=== PATIENT | male | born 1990 | race Caucasian/White ===

== ENCOUNTER 2019-10-27 12:41 | Emergency (ER) | payer OTHER, SELFPAY ==
[2019-10-27 12:52] VITALS: BP 135/65; PULSE 79; RESP 15; TEMP 36.8; O2SAT 95; BMI 29.0
--- NOTE | 2019-10-27 13:09 | DI.RAD.S_ITS ---
PROCEDURE: XR CHEST 2V INDICATIONS: cough TECHNIQUE: 2 views of the chest were acquired. COMPARISON: None. FINDINGS: Surgical changes and devices: None. Lungs and pleura: Lungs are clear. No pleural effusions or pneumothorax. Mediastinum: Mediastinal contours are normal. Heart size is normal. Bones and chest wall: No suspicious bony abnormalities. Soft tissues appear unremarkable. IMPRESSION: No acute pulmonary process. Dictated by: Nelia Marcial M.D. on 10/27/2019 at 13:27 Approved by: Nelia Marcial M.D. on 10/27/2019 at 13:32
--- NOTE | 2019-10-27 13:11 | ED.URI ---
HPI - URI/Sore Throat <HANSEL Lomeli-BC - Last Filed: 10/27/19 14:21> General Chief Complaint: Upper Respiratory Symptoms Stated Complaint: shortness of breath and cough no fever yet Time Seen by Provider: 10/27/19 12:44 Source: patient Mode of arrival: Ambulatory Limitations: no limitations History of Present Illness HPI Narrative: The patient is a 29-year-old male current smoker with history of insomnia who presents with a chief complaint of sore throat congestion and cough. This started 3 days ago, started with pressure in his right sinuses, the moved his left the next day. He had 2 days of cough, but states that his cough is much improved today. He complains of sore throat and states he feels like his throat is swollen. He has been using DayQuil to feel better, which she states helps a little bit. He denies any fevers. Has some nausea related to medication usage. Denies any chest pain. States his cough is nonproductive. Denies any chills but states that his lower back hurts on occasion. Denies any ear pain. Has not taken anything today to feel better. Regarding CoVid 19 risk factors, the patient denies any international travel. He denies any fever. He denies any exposure to known positive CoVid patients. He has not particularly concerned about Covid19. Related Data Previous Rx's Medication Instructions Recorded amoxicillin 875 mg PO BID #20 tab 10/27/19 Allergies Allergy/AdvReac Type Severity Reaction Status Date / Time No Known Drug Allergies Allergy Verified 10/27/19 12:52 Review of Systems <EVA Lomeli - Last Filed: 10/27/19 14:21> Review of Systems Narrative: GENERAL: See HPI HEENT: See HPI RESPIRATORY: See HPI CARDIOVASCULAR: Denies chest pain, palpitations, orthopnea, edema, GASTROINTESTINAL: Denies nausea, vomiting, abdominal pain, diarrhea, constipation, melena. : Denies dysuria, frequency, incontinence, hematuria, urinary retention. MUSCULOSKELETAL: denies weakness, joint pain, or bony pain SKIN: Denies rash, skin lesions, or other NEUROLOGIC: Denies weakness, headache, numbness, change in speech, confusion, seizures, incoordination. PSYCHIATRIC: No concerning psychosocial issues. 12 point review of systems is negative except for those stated above Patient History <EVA Lomeli - Last Filed: 10/27/19 14:21> Medical History Excessive daytime sleepiness (Chronic) Insomnia, unspecified (Chronic) Obstructive sleep apnea of adult (Chronic) Social History marital status: details: Juanita Boland number of children: 2 household members: significant other and children lives independently: Yes caregiver/support person: No housing: house occupational status: employed current occupational exposures/hazards: Yes (in the [employer]) Smoking Status: Current every day smoker Smoking Status: Current every day smoker tobacco type: e-cigarettes alcohol intake frequency: holidays/special occasions only Substance Use Type: does not use Exam <EVA Lomeli - Last Filed: 10/27/19 14:21> Narrative Exam Narrative: GENERAL: This is a well-nourished, well-developed patient, in no acute distress HEAD: Atraumatic. Normocephalic. No temporal or scalp tenderness. EYES: Pupils equal round and reactive. Extraocular motions intact. No scleral icterus. No injection or drainage. ENT: Nose without bleeding, purulent drainage or septal hematoma. Throat with erythema but no tonsillar hypertrophy or exudate. Uvula midline. Airway patent. Bilateral TMs pearly headley. NECK: Trachea midline. No JVD or lymphadenopathy. Supple, nontender, no meningeal signs. CARDIOVASCULAR: Regular rate and rhythm without murmurs, gallops, or rubs. RESPIRATORY: Clear to auscultation. Breath sounds equal bilaterally. No wheezes, rales, or rhonchi. Occasional dry cough on exam.. No increased respiratory effort. No accessory muscle use. Speaking full sentences. GASTROINTESTINAL: Abdomen soft, non-tender, nondistended. No hepato-splenomegaly, or palpable masses. No guarding. Active bowel sounds all 4 quadrants. EXTREMITIES: No clubbing, cyanosis, or edema. No joint tenderness, effusion, or edema noted. BACK: Nontender without deformity or crepitance. No flank tenderness. NEURO: AOx3. SKIN: No rash or erythema. Initial Vital Signs Initial Vital Signs: Vital Signs Temperature 98.2 F 10/27/19 12:52 Pulse Rate 79 10/27/19 12:52 Respiratory Rate 15 10/27/19 12:52 Blood Pressure 135/65 10/27/19 12:52 Pulse Oximetry 95 10/27/19 12:52 <Nilda Shell MD - Last Filed: 10/29/19 03:11> Initial Vital Signs Initial Vital Signs: Vital Signs Temperature 98.2 F 10/27/19 12:52 Pulse Rate 79 10/27/19 12:52 Respiratory Rate 15 10/27/19 12:52 Blood Pressure 135/65 10/27/19 12:52 Pulse Oximetry 95 10/27/19 12:52 Scores <EVA Lomeli - Last Filed: 10/27/19 14:21> GCS Khurram coma scale eye opening: Spontaneous Khurram coma scale verbal response: Orientated Khurram coma scale motor response: Obey commands [place] coma scale total score: 15 Course <EVA Lomeli - Last Filed: 10/27/19 14:21> Orders Ordered: ED Orders 10/27/19 13:09 XR chest 2V Stat 10/27/19 13:15 Influenza A & B (PCR) Stat Throat Culture Stat Vital Signs Vital signs: Vital Signs - 8 hr 10/27/19 12:52 Temperature 98.2 F Pulse Rate 79 Respiratory Rate 15 Blood Pressure 135/65 Pulse Oximetry 95 <Nilda Shell MD - Last Filed: 10/29/19 03:11> Orders Ordered: ED Orders 10/27/19 13:09 XR chest 2V Stat 10/27/19 13:15 Influenza A & B (PCR) Stat Throat Culture Stat Vital Signs Vital signs: Vital Signs - 8 hr 10/27/19 12:52 Temperature 98.2 F Pulse Rate 79 Respiratory Rate 15 Blood Pressure 135/65 Pulse Oximetry 95 MDM - URI/Sore Throat <EVA Lomeli - Last Filed: 10/27/19 14:21> Lab Data Labs: Lab Results 10/27/19 Range/Units 13:15 Influenza A (RT-PCR) Flu a negative (NEGATIVE) Influenza B (RT-PCR) Flu b negative (NEGATIVE) Point of Care Testing Rapid Strep A Positive Imaging Data Chest x-ray: Radiologist's Impression: [address] [place] [id number] XRay Report Signed Patient: Wily Tripp JMR#: [id number] : 1990Acct:[id number] Age/Sex: 29 / MDate of Service: 10/27/19 Loc: ED Accession Number: [id number] Procedure: XR chest 2V Ordering Provider: Alyssa Herrera PROCEDURE: XR CHEST 2V INDICATIONS: cough TECHNIQUE: 2 views of the chest were acquired. COMPARISON: None. FINDINGS: Surgical changes and devices: None. Lungs and pleura: Lungs are clear. No pleural effusions or pneumothorax. Mediastinum: Mediastinal contours are normal. Heart size is normal. Bones and chest wall: No suspicious bony abnormalities. Soft tissues appear unremarkable. IMPRESSION: No acute pulmonary process. Dictated by: Nelia Marcial M.D. on 10/27/2019 at 13:27 Approved by: Nelia Marcial M.D. on 10/27/2019 at 13:32 MDM Narrative Medical decision making narrative: The patient is a 29-year-old male who presents with a chief complaint of cough, sore throat, and sinus pressure. His chest x-ray indicates no pneumonia. His influenza comes back negative. However his rapid strep is positive. He is hemodynamically stable nontoxic-appearing the emergency department. I discussed at length use of antibiotics, [id number] medications as needed and able. Encourage PCP follow-up in the next few days. Discussed come back to the emergency department for any acute concerns. Patient has no questions or concerns upon discharge and states understanding return precautions as well as follow-up care. <Nilda Shell MD - Last Filed: 10/29/19 03:11> Lab Data Labs: Lab Results 10/27/19 Range/Units 13:15 Influenza A (RT-PCR) Flu a negative (NEGATIVE) Influenza B (RT-PCR) Flu b negative (NEGATIVE) Point of Care Testing Rapid Strep A Positive Discharge Plan Departure Patient Disposition: Home Clinical Impression: Strep throat Discharge Date/Time: 10/27/19 14:21 Instructions: DI for Strep Throat Activity Restrictions/Additional Instructions: Thank you for trusting us with your care today. Today your chest x-ray shows no pneumonia. Your rapid influenza test came back negative. However your rapid strep test came back positive. Please remember that you are contagious at this point in time. I sent a prescription of amoxicillin to [facility] in [place]. Please take This with yogurt or probiotic. Please continue [id number] medications as needed and able. Please come back to the emergency department for any acute concerns Please follow-up with primary care provider. Prescriptions: New amoxicillin 875 mg tablet 875 mg PO BID Qty: 20 RF: 0 Referrals: [facility] [Provider Group]
[2019-10-27 13:55] LABS: Influenza A - CEPHEID Flu A NEGATIVE (NEGATIVE); Influenza B - CEPHEID Flu B NEGATIVE (NEGATIVE)
[2019-10-27 14:21] VITALS: BP 120/62; PULSE 79; O2SAT 97
== END 2019-10-27 14:21 | disposition home or self-care (01) ==
PROVIDERS: Emergency Provider Nurse Practitioner Family
DX: J02.0 Streptococcal pharyngitis (principal); R05 Cough
CPT/HCPCS: 71046; 87070; 87502; 87880; 99282; 99283